=== PATIENT | male | born 1940 | race American Indian/Alaskan Native ===

== ENCOUNTER 2019-06-13 09:04 | Day surgery (SDC) | payer MEDICARE, OTHER ==
--- NOTE | 2019-06-13 09:38 | Anesthesia Consultation ---
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 Previous cardiology notes reviewed. >4mets functional capacity.
[2019-06-13] MEDS ORDERED: SUBLIMAZE IV PRN (09:39)
--- NOTE | 2019-06-13 09:39 | Anesthesia Day of Surgery ---
Anesthesia Day of Surgery - Day of Surgery Patient Examined: Yes Patient H&P Reviewed: Yes Patient is NPO: Yes
[2019-06-13] MEDS ORDERED: LACTATED RINGERS 1,000 ML IV SCH (10:00)
[2019-06-13] MEDS ORDERED: ANCEF/STERILE WATER 2 GM/20 ML IV NR (11:00)
[2019-06-13] MEDS ORDERED: ZOFRAN ONE (11:00)
[2019-06-13] MEDS ORDERED: SUBLIMAZE ONE (11:52)
[2019-06-13] MEDS ORDERED: DIPRIVAN 10 MG/ML IV ONE (11:52)
[2019-06-13] MEDS ORDERED: WATER FOR IRRIG STERILE IR ONE (11:55)
--- NOTE | 2019-06-13 12:35 | Post Operative Note ---
Date of procedure: 06/13/19 Pre-op diagnosis: hematuria Post-op diagnosis: same Findings: large prostatic varices Procedure: cysto fulg rpgs Anesthesia: GETA Surgeon: EMILY HOLMAN Estimated blood loss: minimal Pathology: none Condition: stable Disposition: PACU
--- NOTE | 2019-06-13 12:36 | Discharge Summary ---
Short Stay Discharge Plan Activity: other (no straining ) Weight Bearing Status: Full Weight Bearing Diet: low fat, low cholesterol, low salt Special Instructions: other (inc fluids ) Durable Medical Equipment Needed Upon Discharge: other (home with rondon ) Follow up with: BASHIR CALLE MD [Primary Care Provider] - 7 Days EMILY HOLMAN MD [Staff Physician] - 3 Days
--- NOTE | 2019-06-13 13:05 | Operative Report ---
PREOPERATIVE DIAGNOSES: Hematuria, previous prostate surgery about 6 years ago. POSTOPERATIVE DIAGNOSES: Hematuria, previous prostate surgery about 6 years ago. PROCEDURE: Cystoscopy, fulguration of prostate varices, retrogrades. SURGEON: Kevin Oliver MD ANESTHESIA: General. FINDINGS: This is a gentleman, 79 years of age, who had hematuria. He has had prostate surgery 6-7 years ago, now presents for cystoscopy. DESCRIPTION OF PROCEDURE: The patient was brought to the operating room and placed on the operating table. Following induction of anesthesia, he was placed in lithotomy position, prepped and draped in sterile fashion. Cystourethroscopy showed a large posterior recurrent middle lobe, lateral lobes were opened and bladder neck was opened. His bladder neck was a little bit elevated, however. There was a 2-3+ trabeculation. Retrograde showed J hooking with a delicate collecting system. At this point, the area of the varices were fulgurated. There was no significant bleeding. Because of the elevated bladder neck, we placed a wire, 20 [place] was easily placed. Cystogram showed good placement of the catheter. The patient tolerated the procedure well and brought to recovery in stable condition. JOB# [id number] ATA/MARCY
[2019-06-13 15:01] VITALS: BP 156/77
--- NOTE | 2019-06-13 15:18 | Post Anesthesia Evaluation ---
- Post Anesthesia Evaluation Patient Participated: Yes Airway Patent: Yes Stable Respiratory Function: Yes Nausea/Vomiting: No Temp > 96.8F: Yes Pain Manageable: Yes Adequeate Hydration: Yes Anesthesia Complications: No Block Receding Appropriately: Not Applicable Patient on Ventilator: No
--- NOTE | 2019-06-15 08:54 | Fluoroscopy Report ---
[place] cystogram static-OR, [place] bilateral retrograde urography INDICATION / CLINICAL INFORMATION: HEMATURIA. COMPARISON: None available. FINDINGS: Multiple intraoperative images were obtained during bilateral retrograde urography and cystography. T here is a Kaiser catheter in the urinary bladder. Contrast-filled views of the urinary bladder are unr emarkable. Bilateral retrograde pyelography reveals normal pelvicalyceal systems and ureters bilatera lly. I see no evidence of filling defect, mass, hydronephrosis or stricture. There is good washout of contrast on the last image. Fluoroscopy time: 0.6 minutes.. Fluoroscopic images: 7. Signer Name: Roderick Mejía MD Signed: 06/15/2019 8:50 AM Workstation Name: [id number]
== END 2019-06-13 09:05 | disposition home or self-care (01) ==
LOC: OR 09:04
PROVIDERS: ATTEND Urology
DX: R31.0 Gross hematuria (principal); K21.9 Gastro-esophageal reflux disease without esophagitis; I12.9 Hypertensive chronic kidney disease with stage 1 through stage 4 chronic kidney disease, or unspecified chronic kidney disease; N18.6 End stage renal disease; E11.22 Type 2 diabetes mellitus with diabetic chronic kidney disease; H40.9 Unspecified glaucoma; E11.39 Type 2 diabetes mellitus with other diabetic ophthalmic complication; E78.00 Pure hypercholesterolemia, unspecified; E66.9 Obesity, unspecified; Z79.899 Other long term (current) drug therapy; Z79.82 Long term (current) use of aspirin; Z88.8 Allergy status to other drugs, medicaments and biological substances; Z98.41 Cataract extraction status, right eye; Z98.42 Cataract extraction status, left eye; Z98.890 Other specified postprocedural states; Z68.35 Body mass index [BMI] 35.0-35.9, adult; Z87.891 Personal history of nicotine dependence
CPT/HCPCS: 52214; 74420; 82803; 82962; A4217; C1758; J0690; J2405; J2704; J3010; J7120; Q9967; 74430